=== PATIENT | female | born 1940 | race Caucasian/White ===

== ENCOUNTER → 2017-01-15 | Outpatient (CLI) | payer MEDICARE, OTHER ==
--- NOTE | 2017-01-15 09:18 | REPMRS ---
Patient History The patient states she had a clinical breast exam in 12/30 Patient is postmenopausal and has history of endometrial cancer at age 69. Family history of colorectal cancer in maternal aunt at age 60, unknown cancer in brother at age 68, prostate cancer in brother at age 50 or over, and unknown cancer in daughter at age 40. Took hormonal contraceptives for 3 years. Took estrogen for 3 years. Digital Woman Screen Mammo: January 15, 2017 - Exam #: [id number] Bilateral CC and MLO view(s) were taken. Technologist: Denisse Bro, Technologist Prior study comparison: January 09, 2016, digital woman screen mammo performed at [facility]. December 28, 2014, digital bilateral screening mammo, performed at [facility]. December 22, 2013, bilateral bilat screen digital mammo, performed at [facility] ([facility] FINDINGS: There are scattered fibroglandular densities. There has been no change in the appearance of the mammogram from the prior studies. There is a mild amount of scattered fibroglandular density which is fairly symmetric. There is no interval development of dominant mass, architectural distortion, or clustered microcalcification suggestive of malignancy. ASSESSMENT: BI-RADS/ACR category 1 mammogram. Negative. Recommendation Routine screening mammogram in 1 year (for women over age 40). This mammogram was interpreted with the aid of an FDA-approved computer-aided dectection system. Electronically Signed By: Morgan Jackson MD 01/15/17 0917
== END ==
LOC: M WHC 08:16
PROVIDERS: ATTEND Internal Medicine
DX: Z12.31 Encounter for screening mammogram for malignant neoplasm of breast (principal); Z78.0 Asymptomatic menopausal state; Z79.890 Hormone replacement therapy; Z85.42 Personal history of malignant neoplasm of other parts of uterus; Z80.0 Family history of malignant neoplasm of digestive organs; Z80.42 Family history of malignant neoplasm of prostate

== ENCOUNTER → 2018-01-16 | Outpatient (CLI) | payer MEDICARE, OTHER | LOC: M WHC 08:48 | DX: Z12.31 Encounter for screening mammogram for malignant neoplasm of breast (principal); M85.851 Other specified disorders of bone density and structure, right thigh | CPT/HCPCS: 77067 ==

== ENCOUNTER → 2018-03-10 | Outpatient (REF) | payer MEDICARE, OTHER ==
[2018-03-11 12:43] LABS: INR 0.92; PROTHROMBIN TIME 12.4 SECONDS (12.1-14.4)
[2018-03-11 12:44] LABS: PARTIAL THROMBOPLASTIN TIME 27.7 SECONDS (25.4-37.6)
== END ==
LOC: M LAB REF 12:26
DX: I48.0 Paroxysmal atrial fibrillation (principal)
CPT/HCPCS: 85610

== ENCOUNTER → 2019-01-16 | Outpatient (CLI) | payer MEDICARE, OTHER ==
--- NOTE | 2019-01-16 12:33 | REPMRS ---
Patient History The patient states she had a clinical breast exam in 03/2018. Patient is postmenopausal and has history of endometrial cancer at age 69. Family history of colorectal cancer at age 60 in maternal aunt, prostate cancer at age 50 or over in brother. Took hormonal contraceptives for 3 years. Took estrogen for 3 years. 3D TOMOSYNTHESIS WAS PERFORMED. The [facility] lifetime risk for breast cancer is 2.1%. Digital Woman Screen Mammo: January 16, 2019 - Exam #: [id number] Bilateral CC and MLO view(s) were taken. Technologist: Kay Barnes, Technologist Prior study comparison: January 16, 2018, bilateral digital woman screen mammo performed at [facility]. January 15, 2017, digital woman screen mammo performed at [facility]. FINDINGS: The breast tissue is heterogeneously dense. This may lower the sensitivity of mammography. There has been no change in the appearance of the mammogram from the prior studies. There is a moderate amount of residual fibroglandular tissue which is fairly symmetric. There is no interval development of dominant mass, areas of architectural distortion, or clustered microcalcification typical of malignancy. Assessment: BI-RADS/ACR category 1 mammogram. Negative Mammogram. Recommendation Routine screening mammogram in 1 year (for women over age 40). This mammogram was interpreted with the aid of an FDA-approved computer-aided dectection system. Electronically Signed By: Manoj Mcmillan MD 01/16/19 2900
== END ==
LOC: M WHC 10:21
PROVIDERS: ATTEND Nurse Practitioner Family
DX: Z12.31 Encounter for screening mammogram for malignant neoplasm of breast (principal); Z78.0 Asymptomatic menopausal state; Z85.42 Personal history of malignant neoplasm of other parts of uterus; Z92.0 Personal history of contraception

== ENCOUNTER → 2020-02-01 | Outpatient (CLI) | payer MEDICARE, OTHER ==
--- NOTE | 2020-02-01 10:23 | REPMRS ---
Patient History The patient states she had a clinical breast exam in February 2019.Family history of colorectal cancer at age 60 in maternal aunt, prostate cancer at age 50 or over in brother. Took hormonal contraceptives for 3 years. Took estrogen for 3 years. 3D TOMOSYNTHESIS WAS PERFORMED. [facility] for [facility] 1.8%. VOLPARA DENSITY B. Digital Woman Screen Mammo: February 01, 2020 - Exam #: [id number] Bilateral CC and MLO view(s) were taken. Technologist: Estefany Mckeon, Technologist Prior study comparison: January 16, 2019, bilateral digital woman screen mammo performed at [facility]. January 16, 2018, bilateral digital woman screen mammo performed at [facility]. FINDINGS: The breast tissue is heterogeneously dense. This may lower the sensitivity of mammography. There has been no change in the appearance of the mammogram from the prior studies. There is a moderate amount of residual fibroglandular tissue which is fairly symmetric. There is no interval development of dominant mass, areas of architectural distortion, or clustered microcalcification typical of malignancy. Assessment: BI-RADS/ACR category 1 mammogram. Negative Mammogram. Recommendation Routine screening mammogram in 1 year (for women over age 40). This mammogram was interpreted with the aid of an FDA-approved computer-aided dectection system. Electronically Signed By: Manoj Mcmillan MD 02/01/20 [id number]
== END ==
LOC: M WHC 09:46
PROVIDERS: ATTEND Internal Medicine
DX: Z12.31 Encounter for screening mammogram for malignant neoplasm of breast (principal)

== ENCOUNTER → 2021-02-10 | Outpatient (CLI) | payer MEDICARE, OTHER ==
--- NOTE | 2021-02-10 12:17 | REPMRS ---
Patient History The patient states she has not had a clinical breast exam in over a year. Family history of colorectal cancer at age 60 in maternal aunt, prostate cancer at age 50 or over in brother. Took hormonal contraceptives for 3 years. Took estrogen for 3 years. Patient states no breast complaints today. Patient has signed MRS History Sheet. Moderna vaccines 06/09/20 right arm. right arm. Digital Woman Screen Mammo: February 10, 2021 - Exam #: [id number] Bilateral CC and MLO view(s) were taken. Technologist: RT Obed Prior study comparison: February 01, 2020, bilateral digital woman screen mammo performed at [facility]. January 16, 2019, bilateral digital woman screen mammo performed at [facility]. FINDINGS: There are scattered fibroglandular densities. Screening. Digital screening (2D) mammography was performed bilaterally in the CC and MLO projections. Additionally, breast tomosynthesis (3D mammography) was performed bilaterally in the CC and MLO projections. Todays exam was compared to the prior exam/exams. By history, the patient has no complaints of a palpable breast abnormality or other significant breast complaints. The Volpara volumetric breast density category is B, there are scattered areas of fibroglandular densities. The breasts are unchanged in size and shape. There are no melissa-soft tissue densities or spiculated masses. There is no internal architectural distortion. There are no suspicious melissa-calcific clusters. Skin thickening or nipple retraction is not present. IMPRESSION: BI-RADS Category 2- Benign Findings. There is no evidence of malignant alteration of the breasts. Followup examination recommended in one year. The lifetime Tyrer-Cuzick score is 1.5% This mammogram was read with the assistance of [employer],an FDA approved computer aided detection system for mammography. Negative x-ray reports should not delay surgical consultation if a dominant or clinically suspicious mass is present. Not all breast cancers can be identified by mammography. Therefore, we recommend that you continue to perform regular breast self-examination and physical examination and then promptly contact your physician of any concerns or changes. Adenosis and dense breasts may obscure an underlying neoplasm. No significant changes when compared with prior studies. Assessment: BI-RADS/ACR category 2 mammogram. Benign Findings. Recommendation Routine screening mammogram of both breasts in 1 year. Electronically Signed By: Manny Hurtado MD 02/10/21 9259
== END ==
LOC: M WHC 08:56
PROVIDERS: ATTEND Internal Medicine
DX: Z12.31 Encounter for screening mammogram for malignant neoplasm of breast (principal)

== ENCOUNTER → 2022-02-01 | Outpatient (REF) | payer MEDICARE, OTHER | LOC: M LAB REF 15:57 | PROVIDERS: ATTEND Physician Assistant Medical | DX: R14.0 Abdominal distension (gaseous) (principal) ==

== ENCOUNTER → 2022-02-12 | Outpatient (CLI) | payer MEDICARE, OTHER | LOC: M WHC 06:59 | PROVIDERS: ATTEND Internal Medicine | DX: Z12.31 Encounter for screening mammogram for malignant neoplasm of breast (principal) ==

== ENCOUNTER → 2022-03-06 | Outpatient (CLI) | payer MEDICARE, OTHER ==
[~2022-03-06] MED LIST: GASTROGRAFIN SOLUTION 30ML As Ordered ONE; ISOVUE-370 76% 100ML VIAL As Ordered ONE
== END ==
LOC: M RAD 15:19
PROVIDERS: ATTEND Internal Medicine
DX: R14.0 Abdominal distension (gaseous) (principal)
CPT/HCPCS: 74178; Q9963; Q9967

== ENCOUNTER → 2023-02-14 | Outpatient (CLI) | payer MEDICARE, OTHER | LOC: M WHC 10:44 | PROVIDERS: ATTEND Internal Medicine | DX: Z12.31 Encounter for screening mammogram for malignant neoplasm of breast (principal) ==

== ENCOUNTER → 2024-02-19 | Outpatient (CLI) | payer MEDICARE, OTHER | LOC: M WHC 11:57 | PROVIDERS: ATTEND Internal Medicine | DX: Z12.31 Encounter for screening mammogram for malignant neoplasm of breast (principal) ==

== ENCOUNTER → 2025-02-19 | Outpatient (CLI) | payer MEDICARE, OTHER | LOC: M WHC 10:11 | PROVIDERS: ATTEND Internal Medicine | DX: Z12.31 Encounter for screening mammogram for malignant neoplasm of breast (principal); R92.323 Mammographic fibroglandular density, bilateral breasts ==